=== PATIENT | female | born 1975 | race African-American/Black ===

== ENCOUNTER 2019-05-22 10:13 | Observation (INO) | payer OTHER ==
[2019-05-22 10:39] LABS: #Lymphocytes 2.5 thou/uL (1.20-3.40); #Monocytes 0.5 thou/uL (0.11-0.59); #Neutrophils 5.9 thou/uL (1.40-6.50); %Basophils 0.5 % (0.0-1.0); %Eosinophils 0.5 % (0.0-10.0); %Lymphocytes 27.7 % (21.0-51.0); %Neutrophils 65.4 % (42.0-75.0); Hemoglobin 13.2 g/dL (12.0-16.0); Mean Corpuscular HGB CONC 31.8 g/dL (32.0-36.0); Mean Corpuscular Hemoglobin 28.3 pg (27.0-31.0); Mean Corpuscular Volume 89.1 fL (78.0-98.0); Mean Platelet Volume 6.3 fL (7.4-10.4); Platelet Count 371 thou/uL (130-400); RBC Distribution Width 12.7 % (11.5-14.5); Red Blood Cell (RBC) Count 4.66 mill/uL (4.20-5.40); White Blood Cell (WBC) Count 8.9 thou/uL (4.8-10.8)
[2019-05-22 11:04] LABS: ALT (SGPT) 12 U/L (8-55); AST (SGOT) 14 U/L (5-34); Albumin 4.2 g/dL (3.5-5.0); Alkaline Phosphatase 66 U/L (40-150); Anion Gap 11 mmol/L (10-20); BUN (Urea Nitrogen) 10 mg/dL (7.0-18.7); Bilirubin, Total 0.8 mg/dL (0.2-1.2); Calc. Creatinine Clearance 0 mL/min (70-130); Calcium 9.4 mg/dL (7.8-10.44); Carbon Dioxide 22 mmol/L (22-29); Chloride 109 mmol/L (98-107); Estimated GFR-MDRD Greater than 90; Globulin 2.5 g/dL (2.4-3.5); Glucose 91 mg/dL (70-105); Potassium 4.4 mmol/L (3.5-5.1); Protein, Total 6.7 g/dL (6.0-8.3); Sodium 138 mmol/L (136-145)
--- NOTE | 2019-05-22 13:09 | RAD ---
CHEST ONE VIEW: INDICATIONS: Left chest pain, radiating to the back. COMPARISON: None. FINDINGS: The lungs are clear. The heart size is normal. No acute osseous abnormality is evident. IMPRESSION: No acute cardiopulmonary abnormality. POS: CET
[2019-05-22] MEDS ORDERED: Fentanyl 100 MCG/2 ML VIAL ONE (14:01)
--- NOTE | 2019-05-22 15:11 | PDOC.FPRHP ---
- History of Present Illness Chief Complaint: Chest pain History of Present Illness: 44 y/o female inmate, presents to the ED with chest pain that started this morning at 9AM after she woke up and was braiding her hair. She states that she became SOB and had difficulty taking a deep breath because of the pain. She rated the pain a 6/10, sharp and substernal. She states that on Sunday she did a "situp workout," and felt like her neck was strained yesterday. She went and took an acid record center specialist at the onset of the chest pain. She was on her way down to the medical unit when the pain became so severe she stumbled over in pain. In the medical unit in correction she was given aspirin and X2 nitro. This did not relieve the pain. The pain is worse when leaning forward, and her SOB is worse when laying down flat. She states back in 2015 she had very similar pain after loading and unloading heavy boxes. She had a negative stress test at that time. - Allergies/Adverse Reactions Allergies Allergy/AdvReac Type Severity Reaction Status Date / Time codeine Allergy Verified 05/22/19 15:52 codeine sulfate Allergy Uncoded 05/22/19 15:52 - History PMHx: hyperkalemia 2013, congenital breast bone abnormality. PSHx: no surgeries FHx: Mom at age 33. She has a pacemaker and was presumed to have of an [place]. 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 Past smoker of X20 years, 1/2 ppd. Past social etoh occasionally. - Review of Systems General: denies: fever/chills, weight/appetite/sleep changes ENT: denies: nasal congestion Respiratory: reports: shortness of breath. denies: cough, exercise intolerance Cardiovascular: reports: chest pain, orthopnea. denies: palpitation, edema, paroxysmal nocturnal dyspnea Gastrointestinal: reports: abdominal pain, other (acid reflux). denies: nausea , diarrhea, constipation Skin: denies: rashes Neurological: denies: syncope, seizure - Vital signs BP: 123/73 HR: 60 RR: 17 Tmax: 98.1 Pox: 100% on RA Wt: 77.11 - Physical Exam Constitutional: NAD, awake, alert and oriented, well developed HEENT: normocephalic and atraumatic, PERRLA, EOMI, conjunctiva clear, no scleral icterus, grossly normal vision, grossly normal hearing, MMM, oropharynx clear Neck: supple, FROM, trachea midline, no LAD, no JVD, no thyromegaly Chest: no lesions, other (strange left chest wall, made the cardiac exam difficult. Palpated similarlly to an anteriorly displaced PMI or missing ribs.) -Chest: Tenderness to palpation of left sternal border. Heart: RRR, normal S1/S2, no murmurs/rubs/gallops, pulses present, no edema, other (palpable) Lungs: CTAB, no respiratory distress, good air movement, no rales/rhonchi, no wheezing, no retractions Abdomen: soft, bowel sounds present, no masses/distention, other (Epigastric tenderness) Musculoskeletal: normal tone, ROM grossly normal Neurological: no focal deficit, CN II-XII intact -Skin: hyperpigmented and hyperkeratotic lesions over upper chest and neck. Heme/Lymphatic: no unusual bruising or bleeding, no purpura Psychiatric: normal mood and affect, good judgment and insight, intact recent and remote memory FMR H&P: Results - Labs Result Diagrams: 05/22/19 10:31 05/22/19 10:30 Lab results: WBC 8.9 thou/uL (4.8-10.8) 05/22/19 10:31 Hgb 13.2 g/dL (12.0-16.0) 05/22/19 10:31 Hct 41.5 % (36.0-47.0) 05/22/19 10:31 MCV 89.1 fL (78.0-98.0) 05/22/19 10:31 Plt Count 371 thou/uL (130-400) 05/22/19 10:31 Neutrophils % 65.4 % (42.0-75.0) 05/22/19 10:31 Sodium 138 mmol/L (136-145) 05/22/19 10:30 Potassium 4.4 mmol/L (3.5-5.1) 05/22/19 10:30 Chloride 109 mmol/L (98-107) H 05/22/19 10:30 Carbon Dioxide 22 mmol/L (22-29) 05/22/19 10:30 BUN 10 mg/dL (7.0-18.7) 05/22/19 10:30 Creatinine 0.70 mg/dL (0.6-1.1) 05/22/19 10:30 Glucose 91 mg/dL (70-105) 05/22/19 10:30 Calcium 9.4 mg/dL (7.8-10.44) 05/22/19 10:30 Total Bilirubin 0.8 mg/dL (0.2-1.2) 05/22/19 10:30 AST 14 U/L (5-34) 05/22/19 10:30 ALT 12 U/L (8-55) 05/22/19 10:30 Alkaline Phosphatase 66 U/L (40-150) 05/22/19 10:30 Serum Total Protein 6.7 g/dL (6.0-8.3) 05/22/19 10:30 Albumin 4.2 g/dL (3.5-5.0) 05/22/19 10:30 - EKG Interpretation EKG: IA 174 NSR Rate 74 LVH - Radiology Interpretation Chest x-ray Status: image reviewed by me, report reviewed by me (No acute cardiopulmonary process.) FMR H&P: A/P - Problem List (1) Atypical chest pain Current Visit: Yes Status: Acute Code(s): R07.89 - OTHER CHEST PAIN (2) GERD (gastroesophageal reflux disease) Current Visit: Yes Status: Chronic Code(s): K21.9 - GASTRO-ESOPHAGEAL REFLUX DISEASE WITHOUT ESOPHAGITIS - Plan 44 y/o inmate resident admitted to obs for ACS rule out of atypical chest pain. 1. Atypical Chest Pain -Most likely costochondritis. DDx: considered pericarditis, or CHF causes of chest pain. -ESR, BNP -repeat EKG for any chest pain -Stress in the AM if Trops negative -Trend trops -risk stratify: trops, fasting lipid panel, repeat fasting glucose in AM 2. GERD -continue home acid reduction. 3. Full Code 4. DVT PPx: lovenox 5. Diet: regular diet, NPO after midnight for stress in the AM Disposition: patient stable, will risk stratify and stress in AM if necessary. - Disposition/LOS: stable risk stratify and stress in AM is necessary. FMR H&P: Upper Level - Pertinent history Ms. Negrete presents from correction after having substernal chest pressure with associated dyspnea earlier today. The pain is worse when leaning forward or with movement, improved by laying at 30 degrees of incline, orthopnea present. She denies syncope, WALLER, palpitations or other symptoms. She has had this once before. In 2016, reported that she had a negative stress test at that time. Was dx with msk problem and sent home. - Pertinent findings General: NAD HEENT: NCAT Chest: RRR, S1/S2 distant, CTAB, even inspiratory and expiratory effort, no retractions - missing ribs make for unusual auscultation/pmi Abdomen: non distended, NTTP MSK: no weakness, or loss of ROM noted Extremities: non-edematous, pulses present Neuro: grossly intact, no focal deficits Skin: diffuse icthyosis/scarring See architecture internship portion for full ROS, PE, labs and vitals. - Plan Date/Time: 05/22/19 1511 I, Tariq Linda DO, have evaluated this patient and agree with findings/plan as outlined by architecture internship resident. Pertinent changes/additions are listed here. Atypical chest pain - moderately suspicious story, family hx of CAD, trop negx1, EKG w/ possible LVH , CXR wnl - trend trop, EKG/Nitro prn for chest pain, consider stress in AM if trops rise - repeat glucose, FLP for risk stratification - r/o pericarditis, CHF: BNP, ESR pending - neg delta trop, give toradol for chest pain Dispo: likely DC tomorrow with neg trops Addendum - Attending - Attending Attestation Date/Time: 05/22/19 2454 I personally evaluated the patient and discussed the management with Dr. Kenyon/ Alexei. I agree with the History, Examination, Assessment and Plan documented above with any addition or exceptions noted below. patient is a 44-year-old female with no known medical history of presents after an episode of chest pain this morning. She reports the pain was mid chest and left chest and similar in nature to previous episode of musculoskeletal chest pain. She does endorse some shortness of breath while supine and reports that the chest pain is worse when leaning forward. She has no diaphoresis or loss of consciousness. As mentioned, she denies history of hypertension, hyperlipidemia , diabetes. She does have a family history of early coronary artery disease and sudden cardiac per the patient. Her exam is over benign, with stable vital signs. Initial EKG, chest x-ray, laboratory evaluation is negative. Patient will be observed in the telemetry unit overnight. Continue ACS rule out with serial enzymes. Risk stratification with fasting glucose and fasting lipid panel will also be obtained. If she has no medical history that we are able to uncover, anticipate ACS will be ruled out with enzymes alone and no indication for inpatient stress testing. However, if she has recurrent chest pain or EKG changes, consider stress testing and cardiology consult in the a.emil Evangelista MD
[2019-05-22] MEDS ORDERED: Nitroglycerin 0.4 MG TAB (25 Tab Bottle) PO PRN (15:13)
[2019-05-22] MEDS ORDERED: Aspirin Chewable 81 MG TAB ONE ×2 (15:40)
[2019-05-22] MEDS ORDERED: Ketorolac Tromethamine 30 MG/ML VIAL IVP SCH (17:00)
[2019-05-22] MEDS ORDERED: Ketorolac Tromethamine 30 MG/ML VIAL ONE (17:51)
[2019-05-22 20:30] VITALS: BMI 33.3
[2019-05-23 05:05] LABS: Anion Gap 9 mmol/L (10-20); BUN (Urea Nitrogen) 11 mg/dL (7.0-18.7); Calc. Creatinine Clearance 122 mL/min (70-130); Calcium 8.9 mg/dL (7.8-10.44); Carbon Dioxide 26 mmol/L (22-29); Cardiac Risk 4.6 (Less than 4.5); Chloride 108 mmol/L (98-107); Cholesterol 162 mg/dl (< 200 Desired); Estimated GFR-MDRD Greater than 90; Glucose 84 mg/dL (70-105); HDL Cholesterol 35 mg/dL (>60 Neg Risk); LDL Cholesterol, Calculated 115 mg/dL; Potassium 3.8 mmol/L (3.5-5.1); Sodium 139 mmol/L (136-145); Triglycerides 61 mg/dL (Less than 150)
[2019-05-23] MEDS ORDERED: Ketorolac Tromethamine 30 MG/ML VIAL IVP SCH (05:15)
[2019-05-23 05:35] LABS: Troponin I Less than 0.010 ng/mL (< 0.028)
--- NOTE | 2019-05-23 06:17 | PDOC.FM ---
- Subjective Subjective: Patient states she had chest pain throughout the night. She feels better this morning after some pain medication. She continues to have difficulty taking deep breaths. - Objective MAR Reviewed: Yes Vital Signs & Weight: Vital Signs (12 hours) Temp Pulse Resp BP Pulse Ox 05/23/19 04:18 98.2 F 72 14 113/66 98 05/22/19 23:43 98.5 F 61 16 105/61 100 05/22/19 19:09 98.1 F 59 L 16 136/77 99 Weight Weight 77.474 kg Result Diagrams: 05/22/19 10:31 05/23/19 04:15 Additional Labs: Fasting Lipids: total chol 162 LDL 115 HDL 35 Triglycerides 61 Phys Exam - Physical Examination Constitutional: NAD HEENT: PERRLA, moist MMs, sclera anicteric Neck: no nodes, no JVD, supple, full ROM Respiratory: no wheezing, no rales, no rhonchi, clear to auscultation bilateral Cardiovascular: RRR, no significant murmur, no rub abnormal chest wall with what palpates like a displaced PMI. Anterior and superiorly displaced PMI. Gastrointestinal: soft, non-tender, no distention, positive bowel sounds Musculoskeletal: no edema, pulses present Neurological: non-focal, moves all 4 limbs Psychiatric: normal affect, A&O x 3 Skin: normal turgor, cap refill <2 seconds Deviation from normal: hyperpigmented and hyperkeratotic skin lesions on upper chest and neck. Dx/Plan (1) Atypical chest pain Code(s): R07.89 - OTHER CHEST PAIN Status: Acute (2) GERD (gastroesophageal reflux disease) Code(s): K21.9 - GASTRO-ESOPHAGEAL REFLUX DISEASE WITHOUT ESOPHAGITIS Status: Chronic (3) Hyperlipidemia Code(s): E78.5 - HYPERLIPIDEMIA, UNSPECIFIED Status: Chronic - Plan Plan: 44 y/o inmate resident admitted to obs for ACS rule out of atypical chest pain. 1. Atypical Chest Pain -Most likely costochondritis. DDx: considered ACS, pericarditis, or CHF causes of chest pain. -Patient continued to have chest pains throughout the night. -will stress test this morning. -ESR<1, BNP 72 -repeat EKG for any chest pain -trops negative X3. -fasting lipid panel: Trig 61, TChol 162, HDL 135, LDL 35. -Fasting blood glucose 84 2. Hyperlipidemia -added atorvastatin 40mg once daily. 3. GERD -continue home acid reduction. 4. Full Code 5. DVT PPx: lovenox 6. Diet: regular diet, NPO after midnight for stress in the AM Disposition: stable, will stress test this morning. If stress is negative, consider discharge back to longterm. Addendum - Attending - Attending Attestation Date/Time: 05/23/19 8165 I personally evaluated the patient and discussed the management with Dr. Kenyon. I agree with the History, Examination, Assessment and Plan documented above with any addition or exceptions noted below. Patient here for chest pain and ACS r/o. She was ruled out with enzymes. However , she continued to have chest pain so stress testing performed and was normal. She is stable for discharge home today.
[2019-05-23 07:45] VITALS: TEMP 98.4
[2019-05-23] MEDS ORDERED: Enoxaparin Sodium 40 MG/0.4 ML SYRINGE SC SCH (09:00)
[2019-05-23] MEDS ORDERED: ADENOSINE 60 MG/20 ML VIAL ONE (10:21)
[2019-05-23 10:47] VITALS: BP 129/67
--- NOTE | 2019-05-23 10:53 | NM ---
EXAM: CARDIAC SPECT HISTORY: Chest pain TECHNIQUE: A myocardial perfusion scan was performed using the single isotope 1 day protocol with enrike hnetium 99m sestamibi. [11 mCi] was injected intravenously for the rest exam followed by 32 mCifor the stress study. Pharmacologic stress with adenosine was monitored and interpreted by KAIN Sanchez FINDINGS: Homogeneous tracer distribution is seen in the myocardial segments on stress and rest image s without fixed or reversible defects. Gated SPECT LVEF: 48% Wall motion exam: Normal IMPRESSION: Normal myocardial perfusion scan
--- NOTE | 2019-05-23 14:14 | DIS ---
DATE OF ADMISSION: 05/22/2019 DATE OF DISCHARGE: 05/23/2019 CONSULTS: None. PROCEDURES PERFORMED: Stress test nuclear medicine. Pharmacologic stress test showed a left ventricular ejection fraction of 48%, wall motion normal. Impression: Normal myocardial perfusion scan. DIAGNOSES: 1. Atypical chest pain. 2. Hyperlipidemia. 3. Gastroesophageal reflux disease. DISCHARGE MEDICATIONS: Atorvastatin 40 mg. HISTORY OF PRESENT ILLNESS/HOSPITAL COURSE: The patient came to the emergency department from [facility] yesterday after having chest pain that started 9 a.m. in the morning. It was left sided and substernal, radiated to the shoulders and neck. This chest pain caused shortness of breath and pain with deep inspiration which got worse when lying down flat and also the pain got worse when she would lean forward. She described the pain as sharp and 6/10 in intensity. Two nitro and aspirin did not relieve her chest pain initially while so at the [facility]. It lasted until about noon yesterday after she was in the ED and given morphine. The patient has no known past medical history. She has a family medical history of her mom requiring a pacemaker and passing away at the age of 32 of a presumed [place]. Over the course of her hospital stay, we risk stratified her and found her cholesterol to be elevated. Her heart score was a 2. Chest x-ray had no acute cardiopulmonary findings. Vitals were stable throughout the hospital course with admitting blood pressure of 123/73, respiratory rate of 17, heart rate of 60, oxygen saturations 92% on room air, temperature 98.1. She had chest pain throughout the night last night, so this morning, we decided to do the stress test. The stress test came back normal with no evidence of reversible ischemia. She was in stable condition upon discharge, with no chest pain. DISPOSITION: Stable, Stress test negative. DISCHARGE INSTRUCTIONS: 1. Location: Back to [facility]. 2. Diet: Regular diet. 3. Activity: Ad-tawana or as tolerated. 4. Followup: With primary care in 1 week's time. Job ID: [id number] [facility] MEDICAL CENTERMissael
[2019-05-23] MEDS ORDERED: Atorvastatin Calcium 40 MG TAB PO SCH (21:00)
--- NOTE | 2019-05-24 13:24 | EKG ---
Test Reason : Blood Pressure : / mmHG Vent. Rate : 074 BPM Atrial Rate : 074 BPM P-R Int : 174 ms QRS Dur : 090 ms QT Int : 378 ms P-R-T Axes : 050 014 077 degrees QTc Int : 419 ms Normal sinus rhythm Minimal voltage criteria for LVH, may be normal variant Borderline ECG No ST elevation/OK Confirmed by ESTRELLA NUÑEZ M.D. ([id number]), purchase request editor ISHMAEL BERNAL ([id number]) on 05/24/2019 1:23:43 PM Referred By: Confirmed By:ESTRELLA NUÑEZ M.D.
--- NOTE | 2019-05-26 15:22 | EKG ---
Test Reason : STAT Blood Pressure : / mmHG Vent. Rate : 069 BPM Atrial Rate : 069 BPM P-R Int : 198 ms QRS Dur : 088 ms QT Int : 376 ms P-R-T Axes : 049 028 057 degrees QTc Int : 402 ms Normal sinus rhythm Normal ECG Confirmed by CHAVO CASTREJON ([id number]) on 05/26/2019 3:22:15 PM Referred By: CORY Confirmed By:CHAVO CASTREJON
== END 2019-05-23 12:54 ==
LOC: ERS 10:13 → ERHOLD 15:21 → 2SW 19:10
PROVIDERS: ADMIT Student in an Organized Health Care Education/Training Program; ATTEND Student in an Organized Health Care Education/Training Program
DX: R07.2 Precordial pain (principal); E78.5 Hyperlipidemia, unspecified; K21.9 Gastro-esophageal reflux disease without esophagitis; Z87.891 Personal history of nicotine dependence; Z88.5 Allergy status to narcotic agent
CPT/HCPCS: 36415; 71045; 78452; 80048; 80053; 80061; 83880; 84484; 85025; 85379; 85652; 93005; 93010; 93017; 94760; 96361; 96374; 96375; 96376; A9500; G0378; J0153; J1885; J3010

== ENCOUNTER 2019-07-12 13:16 | Emergency (ER) | payer OTHER ==
--- NOTE | 2019-07-12 13:43 | RAD ---
Frontal radiograph chest: 07/12/2019 COMPARISON: 05/22/2019 History: Left chest pain FINDINGS: Lungs are clear. Heart and mediastinal contours are unremarkable. IMPRESSION: No acute findings.
[2019-07-12 14:57] LABS: #Eosinphils 0.1 thou/uL (0.0-0.7); #Lymphocytes 3.1 thou/uL (1.20-3.40); #Monocytes 0.5 thou/uL (0.11-0.59); #Neutrophils 5.2 thou/uL (1.40-6.50); %Basophils 0.5 % (0.0-1.0); %Eosinophils 0.8 % (0.0-10.0); %Lymphocytes 34.2 % (21.0-51.0); %Monocytes 5.9 % (0.0-10.0); %Neutrophils 58.6 % (42.0-75.0); Hemoglobin 13.8 g/dL (12.0-16.0); Mean Corpuscular HGB CONC 33.7 g/dL (32.0-36.0); Mean Corpuscular Hemoglobin 29.7 pg (27.0-31.0); Mean Platelet Volume 6.5 fL (7.4-10.4); Platelet Count 350 thou/uL (130-400); RBC Distribution Width 12.3 % (11.5-14.5); Red Blood Cell (RBC) Count 4.64 mill/uL (4.20-5.40); White Blood Cell (WBC) Count 8.9 thou/uL (4.8-10.8)
[2019-07-12 15:16] LABS: ALT (SGPT) 16 U/L (8-55); AST (SGOT) 16 U/L (5-34); Albumin 4.4 g/dL (3.5-5.0); Alkaline Phosphatase 71 U/L (40-150); Anion Gap 12 mmol/L (10-20); BUN (Urea Nitrogen) 8 mg/dL (7.0-18.7); Bilirubin, Total 0.5 mg/dL (0.2-1.2); CK (CPK) 124 U/L (29-168); Calc. Creatinine Clearance 0 mL/min (70-130); Calcium 9.7 mg/dL (7.8-10.44); Carbon Dioxide 23 mmol/L (22-29); Chloride 105 mmol/L (98-107); Estimated GFR-MDRD Greater than 90; Globulin 2.6 g/dL (2.4-3.5); Glucose 87 mg/dL (70-105); Potassium 4.3 mmol/L (3.5-5.1); Sodium 136 mmol/L (136-145)
[2019-07-12] MEDS ORDERED: Ketorolac Tromethamine 30 MG/ML VIAL ONE (15:40)
== END 2019-07-12 15:54 ==
LOC: ERS 13:16
DX: R07.89 Other chest pain (principal); K21.9 Gastro-esophageal reflux disease without esophagitis; E78.5 Hyperlipidemia, unspecified; Z87.891 Personal history of nicotine dependence
CPT/HCPCS: 36415; 71045; 80053; 82550; 84484; 85025; 93005; 96374; J1885

== ENCOUNTER 2020-12-05 10:19 | Emergency (ER) | payer OTHER ==
--- NOTE | 2020-12-05 11:07 | RAD ---
Portable frontal chest radiograph: 12/05/2020 COMPARISON: 07/12/2019 HISTORY: Chest pain, Covid positive patient FINDINGS: There is mild increased interstitial density in the medial left base. No focal consolidatio n or alveolar edema. No pneumothorax or pleural fluid. IMPRESSION: Mild linear density in the medial left base which may signify volume loss. Mild Covid pne umonia cannot be excluded given history of Covid positive status.
[2020-12-05 11:41] LABS: #Lymphocytes 1.4 thou/uL (1.20-3.40); #Monocytes 0.3 thou/uL (0.11-0.59); %Basophils 0.8 % (0.0-1.0); %Eosinophils 0.3 % (0.0-10.0); %Lymphocytes 28.6 % (21.0-51.0); %Monocytes 6.6 % (0.0-10.0); %Neutrophils 63.7 % (42.0-75.0); Hemoglobin 13.7 g/dL (12.0-16.0); Mean Corpuscular HGB CONC 32.4 g/dL (32.0-36.0); Mean Corpuscular Hemoglobin 28.8 pg (27.0-31.0); Mean Corpuscular Volume 89.1 fL (78.0-98.0); Mean Platelet Volume 6.3 fL (7.4-10.4); Platelet Count 361 thou/uL (130-400); RBC Distribution Width 12.6 % (11.5-14.5); Red Blood Cell (RBC) Count 4.75 mill/uL (4.20-5.40); White Blood Cell (WBC) Count 4.7 thou/uL (4.8-10.8)
[2020-12-05 12:10] LABS: ALT (SGPT) 36 U/L (8-55); AST (SGOT) 31 U/L (5-34); Albumin 4.6 g/dL (3.5-5.0); Alkaline Phosphatase 73 U/L (40-110); Anion Gap 14 mmol/L (10-20); BUN (Urea Nitrogen) 6 mg/dL (7.0-18.7); Bilirubin, Total 0.2 mg/dL (0.2-1.2); Calc. Creatinine Clearance 0 mL/min (70-130); Calcium 9.3 mg/dL (7.8-10.44); Carbon Dioxide 28 mmol/L (22-29); Chloride 104 mmol/L (98-107); Globulin 2.9 g/dL (2.4-3.5); Glucose 94 mg/dL (70-105); Potassium 4.5 mmol/L (3.5-5.1); Protein, Total 7.5 g/dL (6.0-8.3); Sodium 141 mmol/L (136-145)
[2020-12-05 12:22] LABS: CK (CPK) 155 U/L (29-168)
== END 2020-12-05 13:05 ==
LOC: ERS 10:19
DX: U07.1 COVID-19 (principal); R07.9 Chest pain, unspecified; K21.9 Gastro-esophageal reflux disease without esophagitis; E78.5 Hyperlipidemia, unspecified; Z87.891 Personal history of nicotine dependence
CPT/HCPCS: 71045; 80053; 82550; 84484; 85025; 93005; 94760

== ENCOUNTER 2021-03-08 07:42 | Outpatient (CLI) | payer OTHER | END 2021-03-08 07:43 | disposition home or self-care (01) | LOC: ULT 07:42 | PROVIDERS: ATTEND Internal Medicine Gastroenterology | DX: R10.9 Unspecified abdominal pain (principal); K21.9 Gastro-esophageal reflux disease without esophagitis | CPT/HCPCS: 93975 ==

== ENCOUNTER 2021-03-08 09:05 | Day surgery (SDC) | payer OTHER ==
[2021-03-07 11:08] VITALS: BMI 37.7
[2021-03-08] MEDS ORDERED: PROPOFOL 200 MG/20 ML VIAL ONE (11:00)
== END 2021-03-08 11:55 ==
LOC: SDC 09:05
PROVIDERS: ATTEND Internal Medicine Gastroenterology
PROC: 0DB78ZX Excision of Stomach, Pylorus, Via Natural or Artificial Opening Endoscopic, Diagnostic (ICD-10-PCS; principal; 2021-03-08)
DX: K29.50 Unspecified chronic gastritis without bleeding (principal); K25.9 Gastric ulcer, unspecified as acute or chronic, without hemorrhage or perforation; K44.9 Diaphragmatic hernia without obstruction or gangrene; K21.9 Gastro-esophageal reflux disease without esophagitis; G89.29 Other chronic pain; R07.89 Other chest pain; J30.2 Other seasonal allergic rhinitis; F19.10 Other psychoactive substance abuse, uncomplicated; F10.10 Alcohol abuse, uncomplicated; E78.5 Hyperlipidemia, unspecified; E66.9 Obesity, unspecified; Z68.37 Body mass index [BMI] 37.0-37.9, adult; Z79.899 Other long term (current) drug therapy; Z88.5 Allergy status to narcotic agent
CPT/HCPCS: 88305; J2704